=== PATIENT | male | born 1995 | race Caucasian/White ===

== ENCOUNTER 2016-08-08 08:13 | Emergency (ER) | payer OTHER ==
[2016-08-08 08:25] VITALS: BP 101/57
--- NOTE | 2016-08-08 10:34 | UC ---
Throat Pain/Nasal Carlos HPI - HPI Summary HPI Summary: 2 days of sore throat--as bad as when he had mono a few years ago - History of Current Complaint Chief Complaint: UCGeneralIllness Stated Complaint: THROAT COMPLAINT Time Seen by Provider: 08/08/16 10:33 Hx Obtained From: Patient Onset/Duration: Sudden Onset, Lasting Days - 2, Still Present Severity: Severe Pain Intensity: 8 Pain Scale Used: 0-10 Numeric Cough: None Associated Signs & Symptoms: Positive: Other - fatigue - Allergies/Home Medications Allergies/Adverse Reactions: Allergies Allergy/AdvReac Type Severity Reaction Status Date / Time No Known Allergies Allergy Verified 08/08/16 08:25 Home Medications: Home Medications Ibuprofen TAB* [Motrin TAB* 600 MG] 600 mg PO TID PRN 08/08/16 [History Confirmed 08/08/16] PMH/Surg Hx/FS Hx/Imm Hx Previously Healthy: Yes - Surgical History Surgical History: None - Family History Known Family History: Positive: None - Social History Occupation: Employed Full-time Lives: With Family Alcohol Use: Rare Substance Use Type: None Smoking Status (MU): Never Smoked Tobacco Review of Systems Constitutional: Fatigue Skin: Negative Eyes: Negative ENT: Sore Throat Respiratory: Negative Cardiovascular: Negative Gastrointestinal: Negative Genitourinary: Negative Motor: Negative Neurovascular: Negative Musculoskeletal: Negative Neurological: Negative Psychological: Negative All Other Systems Reviewed And Are Negative: Yes Physical Exam Triage Information Reviewed: Yes Appearance: Well-Nourished, Ill-Appearing, Pain Distress Vital Signs: Initial Vital Signs Temp 99.1 F 08/08/16 08:23 Pulse 88 08/08/16 08:23 Resp 16 08/08/16 08:23 BP 101/57 08/08/16 08:23 Pulse Ox 100 08/08/16 08:23 Vital Signs Reviewed: Yes Eye Exam: Normal Eyes: Positive: Conjunctiva Clear ENT Exam: Normal ENT: Positive: Normal ENT inspection, Hearing grossly normal, Pharyngeal erythema, TMs normal, Tonsillar swelling, Tonsillar exudate. Negative: Nasal congestion, Nasal drainage, Trismus, Muffled/hoarse voice Dental Exam: Normal Neck exam: Normal Neck: Positive: Supple, Nontender, Enlarged Nodes @ - anterior cervical Respiratory Exam: Normal Respiratory: Positive: Chest non-tender, Lungs clear, Normal breath sounds, No respiratory distress, No accessory muscle use Cardiovascular Exam: Normal Cardiovascular: Positive: RRR, No Murmur, Pulses Normal, Brisk Capillary Refill Abdominal Exam: Normal Abdomen Description: Positive: No Organomegaly, Soft, Other: - ruq pain. Negative: CVA Tenderness (R), CVA Tenderness (L), Distended Musculoskeletal Exam: Normal Musculoskeletal: Positive: Strength Intact, ROM Intact, No Edema Neurological Exam: Normal Neurological: Positive: Alert, Muscle Tone Normal Psychological Exam: Normal Skin Exam: Normal Diagnostics - Laboratory Diagnostic Studies Completed/Ordered: RST (-) Throat Pain/Nasal Course/Dx - Course Assessment/Plan: lab studies, prednisone, increase fluids, follow with pcp - Differential Dx/Diagnosis Differential Diagnosis/HQI/PQRI: Influenza, Mononucleosis, Otitis Media, Pharyngitis, Sinusitis, URI Provider Diagnoses: Exudative Pharyngitis Discharge - Discharge Plan Condition: Stable Disposition: HOME Prescriptions: predniSONE TAB* [Deltasone TAB*] 20 mg PO DAILY #8 tab Patient Education Materials: Prednisone (By mouth), Mononucleosis (ED), Pharyngitis (ED) Referrals: [facility] [Provider Group] - 5 Days [facility] [place] [facility] [Outside] - 5 Days
[2016-08-08] MEDS ORDERED: Ketorolac INJ* 60 MG/2 ML VIAL IM ONE (10:50)
[2016-08-08 11:29] LABS: EBV Response YES
[2016-08-08 16:24] LABS: Hematocrit 40 % (42-52); Hemoglobin 13.6 g/dl (14.0-18.0); Mean Corpuscular HGB Conc 34 g/dl (31-36); Mean Corpuscular Hemoglobin 31 pg (27-31); Mean Corpuscular Volume 93 fL (80-94); Mean Platelet Volume 9 um3 (7.4-10.4); Red Blood Count 4.33 10^6/ul (4.0-5.4); Red Cell Distribution Width 13 % (10.5-15); White Blood Count 23.6 10^3/ul (3.5-10.8)
[2016-08-08 16:28] LABS: Add Diff/Slide Review? Slide Review Added; Comments Flag Yes
[2016-08-08 16:37] LABS: Albumin 4.4 g/dL (3.2-5.2); BUN/Creatinine Ratio 16.5 (8-20); Calcium 9.6 mg/dL (8.6-10.3); EGFR African American 160.8 (>60); Globulin 3.6 g/dL (2-4); Manual Entry Verification MD; Mono Internal Control QC Line Present; Potassium 4.6 mmol/L (3.5-5.0)
--- NOTE | 2016-08-09 13:16 | UC ---
Progress - Progress Note Progress Note: WBC COUNT 23.6. MONO NEG. SPOKE TO PT. HE STATES HE IS FEELING SIGNIFICANTLY BETTER. ADVISED PT HE NEEDS REPEAT CBC TO ENSURE WBC COUNT IS TRENDING DOWN TO NORMAL. PT REPORTS HE [place] HAVE A [place]CP [place]. HE STATES HE WILL DECIDE WHETHER TO GO TO HIS PCP OR COME BACK HERE FOR RECHECK.
[2016-08-11 13:07] LABS: EBV Capsid Ag IgG Ab Positive (Negative); EBV Capsid Ag IgM Ab Negative (Negative)
== END 2016-08-08 11:09 | disposition home or self-care (01) ==
LOC: UCEAST 08:13
DX: J02.9 Acute pharyngitis, unspecified (principal)
CPT/HCPCS: 36415; 80053; 85025; 86308; 86664; 86665; 87651; 99212; G0463; J1885